=== PATIENT | female | born 1995 | race Caucasian/White ===

== ENCOUNTER 2022-09-19 10:17 | Outpatient (CLI) | payer OTHER, MEDICAID, SELFPAY ==
--- NOTE | ~2022-09-19 | US_ITS ---
Pelvic ultrasound. Clinical History: First trimester , establish dates and viability Technique: Realtime transabdominal and transvaginal scanning of the pelvis was performed. Color flow Doppler and Doppler spectral analysis were performed. Findings: The uterus is anteverted, and contains an intrauterine gestation. [place]-rump length of 1.8 cm corresponds to an estimated gestational age of 8 weeks 1 day. heart rate is 176 bpm. Yolk sa c also present. The right ovary is not visualized. No significant right ovarian or adnexal mass is seen. The left ovary measures 2.3 x 2.2 x 2.0 cm. No significant left ovarian or adnexal mass is seen. There is no evidence of free fluid in the cul de sac. Impression: Live intrauterine gestation with estimated gestational age of 8 weeks 1 day. heart rate is 176 bpm. Reviewed, dictated and finalized at [facility]. Impression: Live intrauterine gestation with estimated gestational age of 8 weeks 1 day. Fe artemio heart rate is 176 bpm.
== END 2022-09-19 10:18 | disposition home or self-care (01) ==
LOC: CHSIMG 10:19
PROVIDERS: PCP Registered Nurse; Visit Provider Registered Nurse
DX: Z34.90 Encounter for supervision of normal pregnancy, unspecified, unspecified trimester (principal); Z3A.08 8 weeks gestation of pregnancy
CPT/HCPCS: 76801; 76817

== ENCOUNTER 2023-04-13 16:34 | Outpatient (CLI) | payer OTHER, SELFPAY ==
[2023-04-13] VITALS (11 sets, daily range): BP systolic 140–164; BP diastolic 65–129; PULSE 99–131; BMI 62.8
[2023-04-13 17:27] LABS: Basophils Percent Auto 0.3 % (0.2-1.2); Eosinophils Absolute Auto 0.1 K/mm3 (0-0.3); Eosinophils Percent Auto 1.3 % (0-4.4); Hematocrit 34.3 % (37.0-47.0); Hemoglobin 11.1 g/dL (12.0-15.0); Immature Granulocyte Absolute 0.03 K/mm3 (0.00-0.031); Immature Granulocyte Percent A 0.4 % (0-0.5); Lymphocytes Absolute Auto 2.16 K/mm3 (0.9-3.2); Lymphocytes Percent Auto 31.1 % (18.3-44.2); Mean Corpuscular HGB Conc 32.4 g/dl (32-36); Mean Corpuscular Hemoglobin 28.5 pg (26-34); Mean Corpuscular Volume 87.9 fl (80-100); Mean Platelet Volume 11.1 fl (7.4-10.4); Monocytes Absolute Auto 0.8 K/mm3 (0.1-0.6); Monocytes Percent Auto 11.9 % (2.6-8.5); Neutrophils Absolute Auto 3.8 K/mm3 (1.3-6.7); Platelet Count Result 210 k/mm3 (150-375); Red Cell Distribution Width 13.2 % (11.5-14.5)
[2023-04-13 17:30] LABS: Appearance Urine Clear (Clear); Bilirubin Urine Negative (Negative); Blood Urine Negative (Negative); Color Urine Yellow (Yellow); Glucose Urine UA Negative (Negative); Ketones Urine Negative (Negative); Leukocyte Esterase Ur Negative LEU/UL (Negative); Nitrate Urine Negative (Negative); Protein Urine Negative (Negative); Specific Grav Ur 1.008 (1.001-1.035); Urobilinogen Urine 0.2 mg/dL (<2.0)
[2023-04-13 17:33] LABS: Add Urine Microscopic? NO
[2023-04-13 17:35] LABS: Creatinine Urine 47.7 mg/dL; Total Protein Urine Random 13 mg/dL; Ur Ttl Prot Creatinine Ratio 0.27 mg/mg (0-0.20)
[2023-04-13 17:45] LABS: Alanine Aminotransferase 15 U/L (6-35); Albumin Level 3.2 g/dL (3.5-5.1); Alkaline Phosphatase 394 U/L (38-126); Anion Gap 6 mmol/L (8-16); Aspartate Amino Transferase 23 U/L (14-36); Bilirubin,Total 0.5 mg/dL (0.2-1.3); Blood Urea Nitrogen 11 mg/dL (7-17); Calcium 10.3 mg/dL (8.4-10.2); Carbon Dioxide 25 mmol/L (22-30); Chloride 104 mmol/L (98-107); Estimated CRCL calculation 163 ml/min; Estimated Glomerular Filt Rate > 60; Glucose 74 mg/dL (65-110); Potassium 4.1 mmol/L (3.4-5.0); Sodium 135 mmol/L (137-145); Uric Acid 7.2 mg/dL (2.5-7.5)
--- NOTE | 2023-04-13 18:17 | PC.NURSE ---
Dr. Garcia on unit and reviewed labs, BP's, and reactive NST. MD questioning the validity of her 151/129 and 164/65 BP's. Stood in room with pt during last BP and had her put her phone totally down while BP being taken and stop conversing. That BP was 140/72. wants a 24 hr urine started, to monitor BP's for another hour, but to call right away if she has any other severe range BP's.
--- NOTE | 2023-04-13 19:21 | PC.NURSE ---
Spoke with Dr Garcia and updated on patients most recent blood pressures. Orders received to discharge patient with a 24 hour urine, handouts on PIH and Preeclampsia, and to instruct the patient to monitor blood pressures at home and to return to the office at the beginning of the next week.
== END 2023-04-13 19:30 | disposition home or self-care (01) ==
LOC: ANHOBOP 16:38 → ANHOBPP 16:39
PROVIDERS: PCP Registered Nurse; Visit Provider Obstetrics & Gynecology
DX: O13.9 Gestational [pregnancy-induced] hypertension without significant proteinuria, unspecified trimester (principal)
CPT/HCPCS: 36415; 59025; 80053; 81003; 82570; 84156; 84550; 85025; 99199

== ENCOUNTER 2023-04-14 17:40 | Outpatient (NON) | payer OTHER, SELFPAY ==
[2023-04-14 17:57] VITALS: BMI 62.8
[2023-04-14 18:12] LABS: Collection Time Urine 24 HOURS
[2023-04-14 18:17] LABS: Total Volume 24 Hour Urine 2600 ml
[2023-04-14 18:22] LABS: Creatinine Clearance Urine 114.9 ml/min (75-125); Creatinine Urine 64.9 mg/dL; Patient Weight 366 Lbs; Total Protein Urine 24 Hr 390 mg/24hr (28-141); Total Protein Urine Random 15 mg/dL
== END 2023-04-14 17:41 | disposition home or self-care (01) ==
LOC: ANHOBOP 17:52
PROVIDERS: PCP Registered Nurse; Visit Provider Obstetrics & Gynecology
DX: O13.9 Gestational [pregnancy-induced] hypertension without significant proteinuria, unspecified trimester (principal); Z3A.00 Weeks of gestation of pregnancy not specified
CPT/HCPCS: 81050; 82575; 84156

== ENCOUNTER 2023-04-15 15:29 | Outpatient (RCR) | payer OTHER, SELFPAY ==
[2023-04-15 16:52] VITALS: BP 140/67; PULSE 88
--- NOTE | 2023-04-15 16:56 | PC.NURSE ---
Pt arrived to L&D unit with complaints of DFM and increased swelling in bilateral lower extremities. Pt noted to have +1 pitting edema in BLE. Pt has a reactive NST. Called Dr. Garcia at 1606 and notified of all of the above. MD gave verbal orders to monitor FHT for 1 full hour and patient may d/c to home if tracing remains reactive and pt adams good movement. After one hour, pt states she feels movement and is d/c to home.
== END 2023-07-14 23:59 | disposition home or self-care (01) ==
LOC: ANHOBOP 15:29
PROVIDERS: PCP Registered Nurse; Visit Provider Obstetrics & Gynecology
DX: O36.8130 Decreased fetal movements, third trimester, not applicable or unspecified (principal); Z3A.37 37 weeks gestation of pregnancy
CPT/HCPCS: 59025

== ENCOUNTER 2023-04-17 19:04 | Inpatient (IN) | payer OTHER, SELFPAY ==
[2023-04-17] VITALS (37 sets, daily range): BP systolic 95–152; BP diastolic 49–90; PULSE 103–145; TEMP 37; O2SAT 96–100; BMI 63.1
--- NOTE | 2023-04-17 19:04 | LDADM ---
This patient, Eli Chambers, was admitted to Labor/Delivery/Recovery 109 on 04/17/23 at 19:04. Plans for labor, pain management and were discussed with patient. Patient/family oriented to hospital policies and general routines including ID bracelet, bed and alarms, visiting hours, pain management, procedures, bathroom and other care routines, personal items, smoking policy, room service/diet and guest tray routines, infant security routines, and visiting hours. Patient/Family are encouraged to report perceived risks to care and to ask questions if they do not understand what they are told or what they should do. See OBIX for further documentation.
[2023-04-17 21:04] LABS: Basophils Percent Auto 0.3 % (0.2-1.2); Eosinophils Absolute Auto 0.1 K/mm3 (0-0.3); Eosinophils Percent Auto 0.5 % (0-4.4); Hematocrit 34.9 % (37.0-47.0); Hemoglobin 11.5 g/dL (12.0-15.0); Immature Granulocyte Absolute 0.06 K/mm3 (0.00-0.031); Immature Granulocyte Percent A 0.6 % (0-0.5); Lymphocytes Absolute Auto 2.24 K/mm3 (0.9-3.2); Lymphocytes Percent Auto 23.7 % (18.3-44.2); Mean Corpuscular Hemoglobin 28.7 pg (26-34); Mean Platelet Volume 11.6 fl (7.4-10.4); Monocytes Absolute Auto 0.6 K/mm3 (0.1-0.6); Monocytes Percent Auto 6.8 % (2.6-8.5); Neutrophils Absolute Auto 6.4 K/mm3 (1.3-6.7); Neutrophils Percent Auto 68.1 % (45.5-73.1); Platelet Count Result 208 k/mm3 (150-375); Red Blood Count 4.01 M/mm3 (4.2-5.4); Red Cell Distribution Width 13.2 % (11.5-14.5); White Blood Count 9.4 K/mm3 (4.5-10.0)
[2023-04-17] MEDS: DINOPROSTONE 10 MG VAG INSERT VAGINAL (21:21)
[2023-04-17 22:50] LABS: Alanine Aminotransferase 16 U/L (6-35); Albumin Level 3.5 g/dL (3.5-5.1); Alkaline Phosphatase 400 U/L (38-126); Anion Gap 5 mmol/L (8-16); Aspartate Amino Transferase 25 U/L (14-36); Bilirubin,Total 0.3 mg/dL (0.2-1.3); Blood Urea Nitrogen 13 mg/dL (7-17); Calcium 11.2 mg/dL (8.4-10.2); Carbon Dioxide 25 mmol/L (22-30); Chloride 106 mmol/L (98-107); Estimated CRCL calculation 145 ml/min; Estimated Glomerular Filt Rate > 60; Glucose 90 mg/dL (65-110); Potassium 3.8 mmol/L (3.4-5.0); Sodium 136 mmol/L (137-145); Uric Acid 7.7 mg/dL (2.5-7.5)
[2023-04-17] MEDS: FAMOTIDINE 20 MG/2 ML VIAL IV PUSH (23:22)
[2023-04-18] VITALS (210 sets, daily range): BP systolic 119–162; BP diastolic 57–111; PULSE 65–195; RESP 16–18; TEMP 36.1–36.4; O2SAT 96–100
[2023-04-18] MEDS: miSOPROStol 25 MCG TABLET VAGINAL (10:33)
[2023-04-18 12:15] LABS: Rapid Plasma Reagin Non-Reactive (NonReactive)
[2023-04-18] MEDS: DOCUSATE SODIUM 100 MG CAPSULE PO (13:08)
[2023-04-18] MEDS: LACTATED RINGERS 1,000 ML 125 ML IV CONT (18:02)
[2023-04-18] MEDS: OXYTOCIN 30 UNITS/NS 500 ML 30 UNITS/500 ML BAG IV CONT (20:33)
[2023-04-18] MEDS: fentaNYL CITRATE INJ (*CRX) 100 MCG/2 ML VIAL 50 MCG IV PUSH (23:52)
[2023-04-19] VITALS (329 sets, daily range): BP systolic 102–180; BP diastolic 44–135; PULSE 29–193; RESP 18–21; TEMP 35.7–38.1; O2SAT 67–100
[2023-04-19] MEDS: LACTATED RINGERS 1,000 ML 125 ML IV CONT ×2 (04:15→11:45)
[2023-04-19] MEDS: fentaNYL CITRATE INJ (*CRX) 100 MCG/2 ML VIAL IV PUSH (04:15)
[2023-04-19] MEDS: AMPICILLIN 2 GM/NS 100 ML 2 GM/100 ML BAG IVPB (10:31)
--- NOTE | 2023-04-19 10:48 | PM.IMHP ---
H&P: HPI History of Present Illness Date/Time: 04/17/231999 Chief Complaint: Pre-eclampsia Narrative: Patient is a G1 at 38 1/7 weeks with mild pre-eclampsia. Recent total protein >300mg. Had elevated blood pressures over the weekend. She denies scotomata or RUQ pain. PNC significant for h/o anxiety. She had second elevated blood pressure over the weekend and 24 hr urine results on of proteinuria on Mon. She was recommended for delivery. Review of Systems Review of Systems: All systems reviewed & are unremarkable except as noted in HPI and below Constitutional: Constitutional: Reports no additional constitutional complaints and Denies headache(s) Eyes: Eyes: Denies spots in vision ENT: Reports system reviewed and no additional complaints, except as documented and Denies headache(s) Cardiovascular: Cardiovascular: Denies chest pain and Denies dyspnea Respiratory: Respiratory: Denies dyspnea Gastrointestinal: Gastrointestinal: Reports no additional gastrointestinal complaints Genitourinary: Genitourinary: Reports amenorrhea Musculoskeletal: Musculoskeletal: Reports no additional musculoskeletal complaints Integumentary/Breasts: Skin/Breast: Denies breast mass and Denies rash Neurologic: Denies headache(s) Psychiatric: Psychiatric: Reports no additional psychiatric complaints [facility] Past Medical History Medical History Anxiety Seasonal allergies Family History Family History Mother Depression Thyroid disorder Sibling Hypertension Grandparent Diabetes mellitus Hypertension Depression Social History Social History Smoking status: Never smoker Alcohol intake: never Substance use: never Do You Feel Safe in your Home?: Yes Lack of Transportation: No Lack of Food: Never True Current Housing: I Have Housing Concerned About Future Housing: No Difficulty Paying Gas/Electric Bills: No Difficulty Paying for Meds: No Currently Unemployed: No Education: Associate Degree Difficulty w/ Childcare or Family Care: No Living arrangements: with family Occupation/Education: occupation Gender identity (if verbalized by the patient): Female Sexual Orientation (if Verbalized by the Patient): Straight or Heterosexual Spiritual care concerns: No Meds Home Medications and Allergies Home Medications Medication Instructions Recorded Confirmed Type bupropion HCl 150 mg 24 hr tablet, 150 mg PO QAM 09/14/22 04/13/23 History extended release vitamin#30 30 mg iron-10 1 cap PO DAILY 09/14/22 04/13/23 History mg iron-folic acid 1 mg-omg3 capsule docusate sodium 100 mg capsule 100 mg PO DAILY 12/13/22 04/13/23 History (Colace) cholecalciferol (vitamin D3) 10 10 mcg PO DAILY 04/08/23 04/13/23 History mcg (400 unit) tablet ferrous sulfate 325 mg (65 mg 325 mg PO DAILY 04/08/23 04/13/23 History iron) tablet aspirin 81 mg chewable tablet 81 mg PO DAILY 04/13/23 04/13/23 History Allergies Allergy/AdvReac Type Severity Reaction Status Date / Time No Known Allergies Allergy Verified 04/12/23 13:56 Vital Signs Vital Signs - 24 hr 04/18/23 10:52 04/18/23 10:57 04/18/23 11:01 Temperature Pulse Rate 116 H Respiratory Rate Blood Pressure 123/61 Pulse Oximetry 98 99 04/18/23 11:02 04/18/23 11:07 04/18/23 11:12 Temperature Pulse Rate Respiratory Rate Blood Pressure Pulse Oximetry 99 99 98 04/18/23 11:16 04/18/23 11:17 04/18/23 11:22 Temperature Pulse Rate 113 H Respiratory Rate Blood Pressure 122/83 Pulse Oximetry 99 98 04/18/23 11:27 04/18/23 11:31 04/18/23 11:32 Temperature Pulse Rate 114 H Respiratory Rate Blood Pressure 132/85 Pulse Oximetry 99 98 04/18/23 11:37 04/18/23 11:42 04/18/23 11:46 Temperatu
--- NOTE | 2023-04-19 10:49 | PM.OBPNVD ---
OB - PN: Subj Subjective Date/time seen: 04/18/23 0815 Interval history: Cat 1, cervix, 3. Will remove cervidil and then start Cytotec. OB - PN: Obj Data Labs 04/17/23 20:51 04/17/23 22:08 Labs: Laboratory Results - last 24 hr 04/17/23 20:51 RPR Non-reactive OB - PN A/P Time Spent With Patient Time: Total time spent is greater than 50% in coordination of care (as documented) at patient's floor/unit and/or counseling patient:
[2023-04-19] MEDS: AMPICILLIN 1 GM/NS 50 ML 1 GM/50 ML BAG IVPB (14:27)
--- NOTE | 2023-04-19 16:20 | PM.OBPNVD ---
OB - PN: Subj Subjective Date/time seen: 04/18/23 16:30 Interval history: Cat 1, 145-150, irreg ctx, cervix 60/-2, AROM clear fluid. Pitocin augmentation. OB - PN: Obj Data Labs 04/17/23 20:51 04/17/23 22:08 OB - PN A/P Time Spent With Patient Time: Total time spent is greater than 50% in coordination of care (as documented) at patient's floor/unit and/or counseling patient:
[2023-04-19] MEDS: AZITHROMYCIN 500 MG/NS 250 ML 500 MG/250 ML BAG 250 MG IVPB (16:23)
--- NOTE | 2023-04-19 16:26 | PM.OBPNVD ---
OB - PN: Subj Subjective Date/time seen: 04/19/23 0830 Interval history: Cat 2, 145-150, irreg ctx. Pitocin was restarted this am. OB - PN: Obj Data Labs 04/17/23 20:51 04/17/23 22:08 OB - PN A/P Time Spent With Patient Time: Total time spent is greater than 50% in coordination of care (as documented) at patient's floor/unit and/or counseling patient:
--- NOTE | 2023-04-19 16:28 | PM.OBPNVD ---
OB - PN: Subj Subjective Date/time seen: 04/19/23 16:28 Interval history: Cat 1, 155, irreg ctx, cervix 2.5/80/-2, caput. Discussed with patient that she has failure to dilate, recommend section. Discussed risk benefits of and risk of continuing to attempt labor and her questions were answered and she agreed to section for failed induction, failure to dilate. OB - PN: Obj Data Labs 04/17/23 20:51 04/17/23 22:08 OB - PN A/P Time Spent With Patient Time: Total time spent is greater than 50% in coordination of care (as documented) at patient's floor/unit and/or counseling patient:
--- NOTE | 2023-04-19 18:16 | PM.OP ---
Procedure Note - Brief Procedure Note - Brief Date of procedure: 04/19/23 Failure to progress Pre-eclampsia without severe features. Post-op diagnosis: Same Procedure performed: Primary low transverse section Surgeon: Juan M Garcia MD Anesthesia: epidural Findings: male infant, loose nuchal cord, OT, 7lbs Estimated blood loss (mL): 550 Urine output (mL): 150 Drains: No Packing: No Pathology: None sent Complications: No immediate complications Condition: Stable Disposition: Floor
--- NOTE | 2023-04-19 18:18 | W.PM.PROC2 ---
Procedure Note - Detailed Date of Procedure 04/19/23 Pre-op Diagnosis Failure to progress Pre-eclampsia without severe features Post-op Diagnosis Same Procedure Performed Primary low transverse section. Surgeon Juan M Garcia MD Anesthesia Epidural Indications Failure to progress. Findings Male 7lbs, OT, normal fallopian tubes and ovaries. Description of Procedure After informed consent, risks and benefits of the procedure was discussed with the patient. The patient was taken to the operating room where she was placed in the dorsal lithotomy position with leftward tilt. After the prior placed epidural anesthesia was found to be adequate, she was then prepped and draped in the usual sterile fashion. A Pfannenstiel skin incision was made with a scalpel and carried through to the underlying layer of fascia. The fascia was then nicked in the midline, extending bilaterally. The fascia was dissected off the rectus muscles bluntly and sharply, superiorly and inferiorly. The rectus muscles were in the midline, and peritoneum was identified and entered bluntly. The pelvic organs were visualized. The bladder blade was then inserted. The vesicouterine peritoneum was identified and entered sharply with Metzenbaum scissors and extended bilaterally and then the bladder flap was created digitally. The low transverse uterine incision was then made with the scalpel and extended with bilateral index fingers in a crescent-shaped fashion. The head was delivered and the rest of the was delivered. There was a nuchal cord which was manually reduced. The nose and mouth suctioned. The cord was clamped twice and cut. The was then handed off to the awaiting pediatric staff. The placenta was then delivered manually. The uterine cavity was sponge curetted. The uterus was then exteriorized. The uterine incision was then closed with 0 vicryl in a running locked fashion. Hemostasis noted. A second layer of 0 vicryl was used in an imbricating fashion for hemostasis. Posterior cul de sac cleared of debris. The uterus was then returned to the abdomen. Bilateral gutters were cleared off all clots and debris. The uterine incision was noted to be hemostatic. Interceed placed on uterine incision and vertically on front of uterus. The muscle bellies were inspected and noted to be hemostatic. The subfascial layer was noted to be hemostatic, and the fascia was closed with 0 Vicryl x 2 sutures in a running fashion. The subcutaneous layer was then approximated with 3-0 Vicryl. The skin was closed with Ensorb barbara. Skin dermabond applied at incision. All instruments, needle, and lap counts were correct x3. The patient was taken to the recovery room in stable condition. Estimated Blood Loss 550 Urine Output 150 Drains No Packing No Pathology None sent Complications No immediate complications Condition Stable Disposition Floor [facility] Billing Surgery - Charge Forward: Surgery Billing
--- NOTE | 2023-04-19 18:22 | W.PM.OBCSD ---
OB - Delivery Note Procedure Delivery date: 04/19/23 Pre-op diagnosis: Failed Induction of Labor and Preeclampsia w/o severe features Post-op Diagnosis: Same Induction method: Per Cervidil Protocol Delivery augmentation: Rupture of Membranes and Pitocin Delivery monitor: External FHT, External Uterine, Internal FHT and Internal Uterine Prior to decision for section, ACOG/SM labor guidelines were considered and discussed with the patient and staff. Decision made to proceed with the section.: Yes Procedure Performed: Primary Surgeon: Juan M Garcia MD Anesthesia type: Epidural Description of Procedure/Findings: Male infant 7lbs OT normal uterus fallopian tubes and ovaries. Estimated Blood Loss: 50 Urine Output: 150 Drains: No Packing: No Pathology: None sent Complications: No immediate complications Condition: Stable Disposition: Floor Young [facility] Baby Date of : 04/19/23 Weeks of gestation at delivery: 38 Infant gender: Male Weight (pounds): 7 presentation: vertex position: Left Occiput Transverse
[2023-04-19] MEDS: OXYTOCIN 30 UNITS/NS 500 ML 30 UNITS/500 ML BAG 125 UNITS IV CONT (20:30)
--- NOTE | 2023-04-19 21:14 | SUR.PHASEI ---
Recovery completed at 2029. Report given to Anabell LAW at 1999 all questions answered at this time. Patient transferred in the bed to PP room.
[2023-04-19] MEDS: ACETAMINOPHEN 325 MG TABLET 650 MG PO (22:48)
[2023-04-19] MEDS: KETOROLAC 15 MG/ML VIAL (*BKC) IV PUSH (22:49)
[2023-04-19] MEDS: ceFAZolin 2 GM/D5W 50 ML 2 GM/50 ML BAG IVPB (22:51)
[2023-04-19] MEDS: DEXTROSE 5%/0.45% SOD CHL 1,000 ML 125 ML IV CONT (23:09)
[2023-04-20] MEDS: ONDANSETRON INJ 4 MG/2 ML VIAL IV PUSH (01:34)
[2023-04-20 04:15] VITALS: BP 139/86; PULSE 75; RESP 16; TEMP 37.1; O2SAT 96
[2023-04-20] MEDS: LIDOCAINE 5% PATCH 1 PATCH TRANSDERM (04:25)
[2023-04-20 04:43] LABS: Basophils Percent Auto 0.4 % (0.2-1.2); Eosinophils Absolute Auto 0.1 K/mm3 (0-0.3); Eosinophils Percent Auto 0.6 % (0-4.4); Hematocrit 30.3 % (37.0-47.0); Hemoglobin 9.4 g/dL (12.0-15.0); Immature Granulocyte Absolute 0.04 K/mm3 (0.00-0.031); Immature Granulocyte Percent A 0.4 % (0-0.5); Lymphocytes Absolute Auto 1.54 K/mm3 (0.9-3.2); Lymphocytes Percent Auto 17.2 % (18.3-44.2); Mean Corpuscular Hemoglobin 28.2 pg (26-34); Monocytes Absolute Auto 0.7 K/mm3 (0.1-0.6); Monocytes Percent Auto 7.6 % (2.6-8.5); Neutrophils Absolute Auto 6.6 K/mm3 (1.3-6.7); Neutrophils Percent Auto 73.8 % (45.5-73.1); Platelet Count Result 160 k/mm3 (150-375); Red Blood Count 3.33 M/mm3 (4.2-5.4); Red Cell Distribution Width 13.6 % (11.5-14.5)
[2023-04-20] MEDS: KETOROLAC 15 MG/ML VIAL (*BKC) IV PUSH ×2 (05:02→10:57)
[2023-04-20] MEDS: ACETAMINOPHEN 325 MG TABLET 650 MG PO ×2 (05:02→10:56)
[2023-04-20 08:10] VITALS: BP 132/73; PULSE 77; RESP 18; TEMP 36.9; O2SAT 95
--- NOTE | 2023-04-20 08:12 | PC.NURSE ---
0740 - Purposefully rounded to assess for needs. Everyone in the room is sleeping and does not awaken upon RN entering, speaking softly, and writing on the communication board. RN will check back later.
[2023-04-20] MEDS: KCL 20 MEQ/D5/0.45% SOD CHL 1,000 ML 125 ML IV CONT (08:46)
[2023-04-20] MEDS: ceFAZolin 2 GM/D5W 50 ML 2 GM/50 ML BAG IVPB (08:48)
[2023-04-20] MEDS: SIMETHICONE 80 MG TAB.CHEW PO ×2 (08:50→15:29)
--- NOTE | 2023-04-20 10:08 | WPDANLDPN2 ---
Anes-Prog Note L&D Date/Time: 04/20/23 10:08 Comfortable throughout: section Neuraxial method: epidural Epidural/Spinal procedure site: clean & non-tender Neuro status: Neuro function grossly intact. Cardiovascular status: normal Respiratory status: normal Airway patency: baseline Mental status: baseline Post-Op hydration status: normal Vital Signs: Last Vital Signs Temp 36.9 C 04/20/23 08:10 Pulse 77 04/20/23 08:10 Resp 18 04/20/23 08:10 BP 132/73 04/20/23 08:10 Pulse Ox 95 04/20/23 08:10 O2 Del Method Room Air 04/19/23 20:30 Pain score (VAS): 3/10 I/O: Intake & Output 04/19/23 04/20/23 04/20/23 23:59 07:59 15:59 Intake Total 50 150 Output Total 1100 450 Balance -1050 -300 Post-procedural complaints: none Patient feedback: Patient satisfied with anesthetic care.
[2023-04-20] MEDS: DOCUSATE SODIUM 100 MG CAPSULE PO ×2 (10:56→16:43)
[2023-04-20] MEDS: MULTIVIT/MIN/PREN/FOL AC/IRON TABLET 1 TAB PO (10:56)
[2023-04-20 11:50] VITALS: BP 122/58; PULSE 85; RESP 16; TEMP 36.9; O2SAT 97
--- NOTE | 2023-04-20 13:57 | PM.OBPNVD ---
OB - PN: Subj Subjective Date/time seen: 04/20/23 0830 Interval history: She states adequate pain control, no leg pain or SOB or CP. Minimal bleeding. No problems with sitting in chair. No flatus. Tolerated liquids. Denies headaches, scotomata or RUQ pain. Patient comments: pain well controlled baby status: bottle feeding well OB - PN: Obj Data Labs 04/20/23 04:33 04/17/23 22:08 Labs: Laboratory Results - last 24 hr 04/20/23 04:33 WBC 9.0 RBC 3.33 L Hgb 9.4 L Hct 30.3 L MCV 91.0 MCH 28.2 MCHC 31.0 L RDW 13.6 Plt Count 160 MPV 11.0 H Immature Gran % (Auto) 0.4 Neut % (Auto) 73.8 H Lymph % (Auto) 17.2 L [place] % (Auto) 7.6 Eos % (Auto) 0.6 Baso % (Auto) 0.4 Lymph # (Auto) 1.54 [place] # (Auto) 0.7 H Eos # (Auto) 0.1 Baso # (Auto) 0.0 Abs Immat Gran (auto) 0.04 H Absolute Neuts (auto) 6.6 Absolute Nucleated RBC 0.0 Nucleated RBC % 0.0 OB - PN A/P Assessment and Plan (1) delivery delivered: Code(s): O82 - Encounter for delivery without indication Status: Acute Assessment and Plan: POD1. Doing well. Routine post op care. Continue prophylactic Ancef until 24 hours delivery time. (2) Pre-eclampsia: Code(s): O14.90 - Unspecified pre-eclampsia, unspecified trimester Status: Acute Assessment and Plan: No signs or symptoms of severe disease. Continue to monitor blood pressures. Time Spent With Patient Time: Total time spent is greater than 50% in coordination of care (as documented) at patient's floor/unit and/or counseling patient: Exam Const: General: comfortable and no acute distress Resp: Effort & Inspection: normal respiratory effort Cardio: Rate: regular rate Psych: Mental Status: mental status grossly normal Affect: normal affect
--- NOTE | 2023-04-20 14:35 | PC.NURSE ---
[id number] Purposefully rounded to assess for needs. is not in the room. Mother shared that infant is getting circumcised. Breast pump was provided on the hourly shift manager due to ineffective related to a partial cleft palate. Instructions given on cleaning, care, usage, that there should be no pain, pumping schedule for milk production, collection, and storage of human milk. Patient was assessed for correct placement, flange size, to pump for comfort and nipple stretching/stimulation for adequate milk production every 3 hours (8 times in 24 hours) 1-2 times at night. The flange sizes in the pump kit are too big for mothers nipples. Mother has a personal pump with the correct flange sizes at home and it will be brought up later this evening. Education, demonstration, and practice of hand expression along with nipple rolling/stretching was reviewed. Primary RN came into the room and mother agreed to have the RN bottle feed infant in the nursery since the circumcision needed to be evaluated longer. Parents are encouraged to record the pumping schedule on the feeding sheet.?Mother voiced understanding of the education shared along with mom/baby guide and the pump measurement, flange fit handout for additional resource information. Resources used for education were facilitated with the visual educational handouts/ tool/mom and baby guide. Inpatient/outpatient resources provided with feeding sheet, name written on the communication board, and the mom/baby guide. Parents voiced understanding of information, demonstrated learning and will call if there is a request for assistance. Reported to the Primary RN.
[2023-04-20] MEDS: POLYSACCHARIDE IRON COMPLEX 150 MG CAPSULE PO (16:43)
[2023-04-20] MEDS: HYDROcodone/acetaminophen (*CRX) 5-325 MG TABLET 1 TAB PO ×2 (16:43→19:50)
[2023-04-20 16:57] VITALS: BP 140/83; PULSE 91; RESP 16; TEMP 36.8; O2SAT 100
[2023-04-20] MEDS: IBUPROFEN 600 MG TABLET PO (17:05)
[2023-04-20 20:30] VITALS: BP 117/64; PULSE 100; RESP 20; TEMP 36.8; O2SAT 99
[2023-04-21] MEDS: HYDROcodone/acetaminophen (*CRX) 5-325 MG TABLET 1 TAB PO ×3 (00:50→17:30)
[2023-04-21] MEDS: IBUPROFEN 600 MG TABLET PO ×3 (00:51→17:31)
[2023-04-21 04:00] VITALS: BP 137/85; PULSE 98; RESP 18; TEMP 36.7; O2SAT 99
[2023-04-21] MEDS: LIDOCAINE 5% PATCH 1 PATCH TRANSDERM (04:59)
--- NOTE | 2023-04-21 08:01 | PM.OBPNVD ---
OB - PN: Subj Subjective Date/time seen: 04/21/23 08:01 Interval history: She states adequate pain control, no leg pain or SOB or CP. Minimal bleeding. She has tolerated regular food. She has had flatus and bowel movement. She has ambulated in [place]. No headache scotomata or RUQ pain. [place] feeding status: pumping and bottle feeding OB - PN: Obj Data Labs 04/20/23 04:33 04/17/23 22:08 OB - PN A/P Assessment and Plan (1) delivery delivered: Code(s): O82 - Encounter for delivery without indication Status: Acute Assessment and Plan: POD2. Doing well. She would like to go home if baby is able to go home. Will discharge home if baby discharge. Discharge precautions discussed. (2) Pre-eclampsia: Code(s): O14.90 - Unspecified pre-eclampsia, unspecified trimester Status: Acute Assessment and Plan: Most blood pressures normal range. No severe signs or symptoms. Time Spent With Patient Time: Total time spent is greater than 50% in coordination of care (as documented) at patient's floor/unit and/or counseling patient: Exam Const: General: comfortable and no acute distress Resp: Effort & Inspection: normal respiratory effort Auscultation: clear to auscultation bilaterally Cardio: Rate: regular rate GI: Other: incision intact no drainage or erythema or induration Extrem: General: normal to inspection and no calf tenderness Right upper extremity: edema (2+ LE bilat, upper bilat 1+) Psych: Mental Status: mental status grossly normal Affect: normal affect
--- NOTE | 2023-04-21 08:08 | PM.OBDSVD ---
DS: Admitting Diagnosis Discharge Date 04/21/23 Admitting Diagnosis Pre-eclampsia without severe symptoms. DS: Discharge Diagnosis Discharge Diagnosis (1) delivery delivered: Code(s): O82 - Encounter for delivery without indication Status: Acute (2) Pre-eclampsia: Code(s): O14.90 - Unspecified pre-eclampsia, unspecified trimester Status: Acute OB - DS: Summary Hospital Course Hospital Course: She was admitted for [facility] for pre-eclampsia without severe symptoms. She had cervidil and then one dose cytotec. She then had AROM. Pitocin started. She was ruptured for 24 and did progress to active labor. She had primary section for failure to progress. She did well post operatively. Ancef was continued for prophylaxis due to long labor and subsequent section. Antibiotics discontinued after 2 additional doses. Her blood pressures were mostly normal. No severe range blood pressures or symptoms. She was tolerating regular diet and ambulating and flatus and bowel movement on day 1. Baby was doing well. 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 Discharge and hypertension precautions discussed. OB Procedures : NST and Ultrasound OB Procedures Intrapartum: OB Procedures: : None and Antibiotics (prophylactic) Peripartum Data Infant Delivery Method: Section Procedures: Procedures Operation Date: 04/19/23 17:00 Actual Procedure Side Surgeon p Section Juan M Garcia MD complications: none Status at Discharge Functional status at discharge: independent ambulation Time Spent with Patient Time attestation: Total time spent providing and/or coordinating discharge services: Exam Const: General: cooperative Orientation/consciousness: oriented to person, oriented to place and oriented to time HENMT: Face/Nose/Sinus: Normal external nose present Eyes: General: appearance normal, both eyes and all related structures Resp: Effort & Inspection: normal respiratory effort GI: Inspection: normal to inspection Skin: General skin exam: normal color Neuro: General: oriented to person, oriented to place and oriented to time Extrem: General: normal to inspection and no calf tenderness Psych: Appearance: grossly normal Mental Status: mental status grossly normal Discharge Plan Discharge Attending physician on discharge: Juan M Garcia Consulting providers: Paris Sweeney Discharging Clinician: Juan M Garcia Anticipated Discharge Date/Time: 04/21/23 17:05 Patient Disposition: Home, Self-Care Activity: may shower, no straining, no driving and pelvic rest Diet: low sodium Patient Instructions: Antibiotic Form, (DC) Stand Alone Forms: General Discharge Information Follow-up/Referrals: Juan M Garcia MD [Physician] - 1 Week (call for appointment for 1-2 weeks) Discharge Medications: New hydrocodone-acetaminophen 5-325 mg Tablet 1 tablet PO Q3H PRN (Reason: Breakthrough Pain Rated 4-6) Qty: 20 0RF No Action PNV #[id number] 30 mg iron-10 mg iron-1 mg capsule 1 cap PO DAILY bupropion HCl 150 mg tablet extended release 24 hr 150 mg PO QAM docusate sodium [Colace] 100 mg capsule 100 mg PO DAILY ferrous sulfate 325 mg (65 mg iron) Tablet 325 mg PO DAILY cholecalciferol (vitamin D3) 10 mcg (400 unit) Tablet 10 mcg PO DAILY aspirin 81 mg Tablet,Chewable 81 mg PO DAILY Date of admission: 04/17/23 19:04 Primary Care Provider: NnekaJed Admitting Provider: Juan M Garcia Attending physician on admission: Juan M Garcia Condition: Stable
[2023-04-21 08:28] VITALS: BP 140/75; PULSE 71; RESP 18; TEMP 36.1; O2SAT 97
[2023-04-21] MEDS: POLYSACCHARIDE IRON COMPLEX 150 MG CAPSULE PO ×2 (09:07→17:30)
[2023-04-21] MEDS: DOCUSATE SODIUM 100 MG CAPSULE PO ×2 (09:07→17:30)
[2023-04-21] MEDS: MULTIVIT/MIN/PREN/FOL AC/IRON TABLET 1 TAB PO (09:07)
[2023-04-21] MEDS: SIMETHICONE 80 MG TAB.CHEW PO (09:07)
[2023-04-21 12:47] VITALS: BP 143/85; PULSE 100; RESP 18; TEMP 36.4; O2SAT 97
--- NOTE | 2023-04-21 14:52 | PC.NURSE ---
[id number] Requested consult related to mother has her personal pump here today and would like to have the breast shield fitted. Reinforced education on instructions given on cleaning, care, usage, that there should be no pain, pumping schedule for milk production, collection, and storage of human milk. Patient was assessed for correct placement, flange size, to pump for comfort and nipple stretching/stimulation for adequate milk production every 3 hours (8 times in 24 hours) 1-2 times at night. Parents are encouraged to record the pumping schedule on the feeding sheet.?Mother voiced understanding of the education shared along with mom/baby guide and the pump measurement, flange fit handout for additional resource information.
[2023-04-21 16:29] VITALS: BP 153/80; PULSE 115; RESP 20; TEMP 37; O2SAT 98
[2023-04-21 16:30] VITALS: PULSE 92; RESP 20; O2SAT 97
[2023-04-22 14:07] VITALS: BP 126/72; PULSE 89; RESP 18; TEMP 36.6; O2SAT 100
--- NOTE | 2023-05-24 09:56 | P.PCNOB_ITS ---
OB - Delivery Note Procedure Delivery date: 05/24/23 Pre-op diagnosis: Failed Induction of Labor and Preeclampsia w/o severe features Post-op Diagnosis: Same Prior to decision for section, ACOG/SMFM labor guidelines were considered and discussed with the patient and staff. Decision made to proceed with the section.: Yes Procedure Performed: Primary Surgeon: Juan M Garcia MD Anesthesia type: Epidural Description of Procedure/Findings: See prior op note Urine Output: 500 Pathology: Yes Complications: No immediate complications Condition: Stable [place] Baby Date of : [birth year]23 Weeks of gestation at delivery: 38 gender: Male Weight (pounds): 7 presentation: vertex position: Left Occiput Transverse
--- NOTE | 2023-05-24 09:58 | WPDHPUPDATE1 ---
History and Physical Update Update Date/Time: 05/24/23 09:58 History and Physical has been reviewed, including an updated exam of the patient. There are NO changes in the patient's condition. Risks, benefits, and alternatives have been discussed and questions answered. Patient agrees to proceed with procedure.
== END 2023-04-21 19:35 | disposition home or self-care (01) | DRG 540 ==
LOC: ANHLDR 19:08 → ANHOB2 04-19 21:41
PROVIDERS: Admitting Provider Obstetrics & Gynecology; PCP Registered Nurse; Visit Provider Obstetrics & Gynecology
PROC: 10D00Z1 Extraction of Products of Conception, Low, Open Approach (ICD-10-PCS; CPT 59514; principal; 2023-04-19 17:00)
DX: O14.04 Mild to moderate pre-eclampsia, complicating childbirth (principal); O99.344 Other mental disorders complicating childbirth; O69.81X0 Labor and delivery complicated by cord around neck, without compression, not applicable or unspecified; O62.0 Primary inadequate contractions; O62.2 Other uterine inertia; F41.9 Anxiety disorder, unspecified; O42.92 Full-term premature rupture of membranes, unspecified as to length of time between rupture and onset of labor; Z3A.38 38 weeks gestation of pregnancy; Z37.0 Single live birth
CPT/HCPCS: 36415; 80053; 84550; 85025; 86592; 86850; 86900; 86901; A9270; J0290; J0456; J0690; J1885; J2274; J2405; J2590; J2795; J3010; J3480; J7120

== ENCOUNTER 2023-06-29 07:30 | Outpatient (RCR) | payer OTHER, SELFPAY ==
[2023-05-08 14:20] VITALS: BMI 56.0
== END 2023-08-06 23:59 | disposition home or self-care (01) ==
LOC: ANHWOC 07:30
PROVIDERS: PCP Registered Nurse; Visit Provider Obstetrics & Gynecology
DX: O90.89 Other complications of the puerperium, not elsewhere classified (principal)
CPT/HCPCS: 99213; 99214; G0463